=== PATIENT | male | born 1940 | race Caucasian/White ===

== ENCOUNTER → 2018-10-23 08:10 | Outpatient (CLI) | payer OTHER, SELFPAY ==
[2018-10-23 09:09] LABS: Add Manual Diff / Slide Review NO; Basophils Absolute Auto 100 /uL (0-100); Basophils Percent Auto 0.9 % (0-2); Eosinophils Absolute Auto 200 /uL (0-450); Hematocrit 43.7 % (41-53); Lymphocytes Absolute Auto 1700 /uL (1100-4500); Lymphocytes Percent Auto 22.8 % (25-40); Mean Corpuscular HGB Conc 34.3 % (30-36); Mean Corpuscular Hemoglobin 29.3 PG (26-34); Mean Corpuscular Volume 85.3 fL (80-100); Monocytes Absolute Auto 700 /uL (0-900); Monocytes Percent Auto 8.8 % (3-14); Neutrophils Absolute Auto 4900 /uL (1500-7000); Neutrophils Percent Auto 64.5 % (50-75); Platelet Count 262 X10^3/uL (150-400); Red Blood Cell Count 5.12 X10^6/uL (4.5-5.9); Red Cell Distribution Width 13.8 % (11.6-14.8); White Blood Cell Count 7.6 X10^3/uL (4.5-11.0)
[2018-10-23 10:13] LABS: Alanine Aminotransferase 26 IU/L (21-72); Albumin 4.4 g/dL (3.5-5.0); Albumin Globulin Ratio 1.7 (1.0-2.8); Alkaline Phosphatase 57 U/L (38-126); Aspartate Aminotransferase 22 IU/L (17-59); BUN Creatinine Ratio 21.3 (6-22); Bilirubin Total 0.5 mg/dL (0.2-1.3); Blood Urea Nitrogen 17 mg/dL (9-20); Calcium 9.9 mg/dL (8.4-10.2); Carbon Dioxide 29 mmol/L (22-32); Chloride 101 mmol/L (98-107); Cholesterol 183 mg/dL (140-199); Estimated Glomerular Filt Rate > 60.0 mL/min (>60); Globulin 2.6 g/dL (1.7-4.1); Glucose 99 mg/dL (80-110); HDL Cholesterol 77 mg/dL (40-60); HEMOLYSIS < 15 (0-50); LDL Cholesterol Calculated 88 mg/dL (<100); Potassium 5.3 mmol/L (3.4-5.1); Sodium 138 mmol/L (137-145); Triglycerides 89 mg/dL (35-150)
[2018-10-23 10:43] LABS: Thyroid Stimulating Hormone 1.81 uIU/mL (0.47-4.68)
== END ==
PROVIDERS: PCP Family Medicine; Visit Provider Family Medicine
DX: E78.2 Mixed hyperlipidemia (principal); I10 Essential (primary) hypertension
CPT/HCPCS: 36415; 80053; 80061; 84443; 85025

== ENCOUNTER → 2018-11-06 13:39 | Outpatient (CLI) | payer OTHER, SELFPAY ==
[2018-11-06 16:09] LABS: Prostate Specific Antigen Scrn < 0.064 ng/mL (0.1-4.0)
== END ==
PROVIDERS: PCP Family Medicine; Visit Provider Family Medicine
DX: E78.2 Mixed hyperlipidemia (principal); Z12.5 Encounter for screening for malignant neoplasm of prostate
CPT/HCPCS: 36415; G0103

== ENCOUNTER → 2020-04-04 16:32 | Outpatient (CLI) | payer OTHER, SELFPAY ==
--- NOTE | 2020-04-04 16:35 | DI.RAD.S_ITS ---
PROCEDURE: XR SHOULDER RT MIN 2V INDICATIONS: right shoulder injury/pain TECHNIQUE: Three views of the shoulder were acquired. COMPARISON: None. FINDINGS: Bones: No fractures or dislocations. Mild degenerative changes. No suspicious bony lesions. Visualized ribs appear intact. Soft tissues: No suspicious soft tissue calcifications. Small non ossified density just caudal to the inferior glenoid. IMPRESSION: 1. Small non ossified density caudal to the glenohumeral joint may be dystrophic calcification or loose intra-articular body. 2. No significant humeral head fractures. Dictated by: Mariella Galan M.D. on 04/04/2020 at 16:04 Approved by: Mariella Galan M.D. on 04/04/2020 at 16:06
== END ==
PROVIDERS: PCP Family Medicine; Referring Provider Registered Nurse; Visit Provider Registered Nurse
DX: S49.91XA Unspecified injury of right shoulder and upper arm, initial encounter (principal); X58.XXXA Exposure to other specified factors, initial encounter
CPT/HCPCS: 73030

== ENCOUNTER → 2020-08-09 07:46 | Outpatient (CLI) | payer OTHER, SELFPAY ==
[2020-08-09 08:37] LABS: Alanine Aminotransferase 16 IU/L (<50); Albumin 4.2 g/dL (3.5-5.0); Albumin Globulin Ratio 1.6 (1.0-2.8); Alkaline Phosphatase 59 U/L (38-126); Aspartate Aminotransferase 24 IU/L (17-59); BUN Creatinine Ratio 23.9 (6-22); Bilirubin Total 0.4 mg/dL (0.2-1.3); Blood Urea Nitrogen 21 mg/dL (9-20); Calcium 9.2 mg/dL (8.4-10.2); Carbon Dioxide 32 mmol/L (22-32); Chloride 103 mmol/L (98-107); Cholesterol 213 mg/dL (140-199); Estimated Glomerular Filt Rate > 60.0 mL/min (>60); Globulin 2.7 g/dL (1.7-4.1); Glucose 110 mg/dL (80-110); HDL Cholesterol 72 mg/dL (40-60); HEMOLYSIS < 15 (0-50); LDL Cholesterol Calculated 126 mg/dL (<100); Potassium 4.6 mmol/L (3.4-5.1); Sodium 137 mmol/L (137-145); Total Protein 6.9 g/dL (6.3-8.2); Triglycerides 77 mg/dL (35-150)
== END ==
PROVIDERS: PCP Family Medicine; Referring Provider Family Medicine; Visit Provider Family Medicine
DX: E78.2 Mixed hyperlipidemia (principal); E87.5 Hyperkalemia
CPT/HCPCS: 36415; 80053; 80061

== ENCOUNTER → 2021-04-13 07:52 | Outpatient (CLI) | payer OTHER, SELFPAY ==
[2021-04-13 08:25] LABS: Add Manual Diff / Slide Review NO; Basophils Absolute Auto 100 /uL (0-100); Basophils Percent Auto 0.9 % (0-2); Eosinophils Absolute Auto 200 /uL (0-450); Eosinophils Percent Auto 2.5 % (2-4); Hematocrit 42.9 % (41-53); Hemoglobin 14.5 g/dL (13.5-17.5); Lymphocytes Absolute Auto 1700 /uL (1100-4500); Lymphocytes Percent Auto 26.1 % (25-40); Mean Corpuscular HGB Conc 33.8 % (30-36); Mean Corpuscular Hemoglobin 29.6 PG (26-34); Mean Corpuscular Volume 87.4 fL (80-100); Monocytes Absolute Auto 600 /uL (0-900); Monocytes Percent Auto 8.2 % (3-14); Neutrophils Absolute Auto 4200 /uL (1500-7000); Neutrophils Percent Auto 62.3 % (50-75); Platelet Count 244 X10^3/uL (150-400); Red Blood Cell Count 4.91 X10^6/uL (4.5-5.9); Red Cell Distribution Width 13.9 % (11.6-14.8); White Blood Cell Count 6.7 X10^3/uL (4.5-11.0)
[2021-04-13 08:31] LABS: Alanine Aminotransferase 18 IU/L (<50); Albumin 4.6 g/dL (3.5-5.0); Albumin Globulin Ratio 1.9 (1.0-2.8); Alkaline Phosphatase 58 U/L (38-126); Aspartate Aminotransferase 24 IU/L (17-59); BUN Creatinine Ratio 19.6 (6-22); Bilirubin Total 0.6 mg/dL (0.2-1.3); Blood Urea Nitrogen 18 mg/dL (9-20); Calcium 9.7 mg/dL (8.4-10.2); Carbon Dioxide 29 mmol/L (22-32); Chloride 102 mmol/L (98-107); Cholesterol 186 mg/dL (140-199); Estimated Glomerular Filt Rate > 60.0 mL/min (>60); Globulin 2.4 g/dL (1.7-4.1); Glucose 90 mg/dL (80-110); HDL Cholesterol 92 mg/dL (40-60); HEMOLYSIS < 15 (0-50); LDL Cholesterol Calculated 75 mg/dL (<100); Potassium 4.2 mmol/L (3.4-5.1); Sodium 138 mmol/L (137-145); Triglycerides 97 mg/dL (35-150)
[2021-04-13 09:03] LABS: Prostate Specific Antigen Scrn < 0.064 ng/mL (0.1-4.0)
[2021-04-13 10:03] LABS: Microalbumin Urine Random < 0.6 mg/dL (0-1.6)
== END ==
PROVIDERS: PCP Family Medicine; Referring Provider Family Medicine; Visit Provider Family Medicine
DX: E78.2 Mixed hyperlipidemia (principal); Z12.5 Encounter for screening for malignant neoplasm of prostate; I10 Essential (primary) hypertension; R97.20 Elevated prostate specific antigen [PSA]
CPT/HCPCS: 36415; 80053; 80061; 82043; 82570; 85025; G0103

== ENCOUNTER → 2021-05-14 10:44 | Outpatient (CLI) | payer OTHER, SELFPAY ==
[2021-05-14 14:33] LABS: COVID19 -Nasal RAPID Negative (Negative)
== END ==
PROVIDERS: PCP Family Medicine; Visit Provider Nurse Practitioner Family
DX: Z20.822 Contact with and (suspected) exposure to COVID-19 (principal)
CPT/HCPCS: 87635; C9803

== ENCOUNTER 2021-05-15 11:18 | Day surgery (SDC) | payer OTHER, SELFPAY ==
[2021-05-15 11:48] VITALS: BP 181/83; PULSE 77; RESP 16; TEMP 36.6; O2SAT 97; BMI 25.8
[2021-05-15] MEDS: CATARACT EYE COMPOUND (10 DROPS/SYRINGE) 3 DROPS EYE-OP (11:56)
[2021-05-15] MEDS: PROPARACAINE 0.5% OPHTH SOL 2 DROPS EYE-OP (11:57)
--- NOTE | 2021-05-15 12:36 | PM.PREOP ---
Pre-operative Note Interval Note History & Physical reviewed/Exam performed by Physician: Yes Changes to H&P: No
--- NOTE | 2021-05-15 12:36 | PM.OP.1 ---
Operative Date/Time/Diagnoses Pre-op diagnosis: Nuclear cataract right eye Procedure & Clinicians Procedure: Cataract Surgery Same procedure as scheduled: Yes Surgeon: Feng Chin Anesthesia Type: MAC +/- and Sedation Operative Notes Procedure in detail: Patient brought to the operating suite. Tetracaine drops placed in the right eye. Patient was prepped and draped in sterile manner. Wire lid speculum was placed in the eye. Betadine drops were placed on the eye. This was irrigated. Lidocaine jelly was placed on the eye. A paracentesis port was created with a side-port blade. 0.1 mL 1% preservative free lidocaine was injected into the anterior chamber. There was no view of the capsule because of white cataract and asteroid hylosis. 0.2 mL vision blue was injected under air to stain the capsule. The anterior chamber was deepened with viscoelastic. 2.6 mm keratome was used to create a temporal clear corneal incision. Cystotome and Utrata forceps were used to create continuous tear capsulorrhexis. Balanced salt solution was used to hydro dissect the nucleus. The phacoemulsification handpiece was inserted and the nucleus was removed using the stop and chop technique. The irrigation aspiration handpiece was inserted and the remaining cortex was removed. Anterior chamber was deepened with viscoelastic. An Daniel DIB00 intraocular lens with a power of 24.5 was injected into the capsular bag. Irrigation aspiration handpiece was inserted and the remaining viscoelastic was removed. Incision was hydrated with balanced salt solution and found to be leak free with pressure with Weck-Nini sponges. 0.1 mL Vigamox injected anterior chamber. 0.3 mL Kenalog 10 mg was injected subconjunctivally. Lid speculum was removed. The patient left the operating room in excellent condition. Complications: none Post-operative Condition: stable Disposition: same day surgery
[2021-05-15] MEDS: HYALURONATE SODIUM 30 MG-10 MG/ML SYRINGES 1 BOX INTRAOCULA (12:48)
[2021-05-15] MEDS: TRYPAN BLUE 0.5 ML SYRINGE INJ (12:53)
[2021-05-15] MEDS: MOXIFLOXACIN INJ 4 MG/0.8 ML VIAL 0.5 MG EYE-OP (12:53)
[2021-05-15] MEDS: PHENYLEPHRINE/LIDOCAINE VIAL (OR) 0.2 ML EYE-OP (12:54)
[2021-05-15] MEDS: TRIAMCINOLONE 50 MG/5 ML VIAL INJ (12:54)
[2021-05-15] MEDS: BALANCED SALT IRRIG SOLN NO.2 500 ML, EPINEPHrine 1 MG IRR (12:54)
[2021-05-15] MEDS: TETRACAINE 0.5% OPHTH DROPS 4 ML 2 DROPS EYE-OP (12:55)
[2021-05-15] MEDS: LIDOCAINE 2% (GLYDO) 6 ML GEL TOP (12:55)
[2021-05-15 13:15] VITALS: BP 163/76; PULSE 68; RESP 16; TEMP 37.2; O2SAT 100
[2021-05-15 13:42] VITALS: BP 162/79; PULSE 68; RESP 16; TEMP 36.8; O2SAT 100
--- NOTE | 2021-05-15 14:32 | SUR.PHASEII ---
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
== END 2021-05-15 13:50 | disposition home or self-care (01) ==
PROVIDERS: PCP Family Medicine; Referring Provider Ophthalmology; Visit Provider Ophthalmology
PROC: (CPT 66984; principal; 2021-05-15 13:15)
DX: H25.11 Age-related nuclear cataract, right eye (principal); I10 Essential (primary) hypertension; E78.5 Hyperlipidemia, unspecified; M06.9 Rheumatoid arthritis, unspecified
CPT/HCPCS: 66984; J0171; J2250; J3301

== ENCOUNTER → 2021-05-28 10:20 | Outpatient (CLI) | payer OTHER, SELFPAY ==
[2021-05-28 11:24] LABS: COVID19 -Nasal RAPID Negative (Negative)
== END ==
PROVIDERS: PCP Family Medicine; Visit Provider Physician Assistant
DX: Z01.812 Encounter for preprocedural laboratory examination (principal); Z20.822 Contact with and (suspected) exposure to COVID-19
CPT/HCPCS: 87635; C9803

== ENCOUNTER 2021-05-29 08:20 | Day surgery (SDC) | payer OTHER, SELFPAY ==
[2021-05-29] MEDS: PROPARACAINE 0.5% OPHTH SOL 2 DROPS EYE-OP (09:24)
[2021-05-29] MEDS: CATARACT EYE COMPOUND (10 DROPS/SYRINGE) 3 DROPS EYE-OP (09:30)
[2021-05-29 09:31] VITALS: BP 183/83; PULSE 67; RESP 16; TEMP 36.9; O2SAT 98; BMI 25.0
--- NOTE | 2021-05-29 10:12 | PM.PREOP ---
Pre-operative Note Interval Note History & Physical reviewed/Exam performed by Physician: Yes Changes to H&P: No
--- NOTE | 2021-05-29 10:12 | PM.OP.1 ---
Operative Date/Time/Diagnoses Pre-op diagnosis: Nuclear Cataract Left eye Post-op diagnosis: same Procedure & Clinicians Same procedure as scheduled: Yes Surgeon: Feng Chin Anesthesia Type: MAC +/- and Sedation Operative Notes Procedure in detail: Patient brought to the operating suite. Tetracaine drops placed in the left eye. Patient was prepped and draped in sterile manner. Wire lid speculum was placed in the eye. Betadine drops were placed on the eye. This was irrigated. Lidocaine jelly was placed on the eye. A paracentesis port was created with a side-port blade. 0.1 mL 1% preservative free lidocaine was injected into the anterior chamber. There was no red reflex. The anterior chamber was filled with air. 0.1 ML of vision blue was injected to stain the capsule. The anterior chamber was deepened with viscoelastic. 2.6 mm keratome was used to create a temporal clear corneal incision. Cystotome and Utrata forceps were used to create continuous tear capsulorrhexis. Balanced salt solution was used to hydro dissect the nucleus. The phacoemulsification handpiece was inserted and the nucleus was removed using the stop and chop technique. The irrigation aspiration handpiece was inserted and the remaining cortex was removed. Anterior chamber was deepened with viscoelastic. An Daniel DIB00 intraocular lens with a power of 25.5 was injected into the capsular bag. Irrigation aspiration handpiece was inserted and the remaining viscoelastic was removed. Incision was hydrated with balanced salt solution and found to be leak free with pressure with Weck-Nini sponges. 0.1 mL Vigamox injected anterior chamber. 0.3 mL Kenalog 10 mg was injected subconjunctivally. Lid speculum was removed. The patient left the operating room in excellent condition. Complications: none Post-operative Condition: stable Disposition: same day surgery
[2021-05-29] MEDS: HYALURONATE SODIUM 30 MG-10 MG/ML SYRINGES 1 BOX INTRAOCULA (10:28)
[2021-05-29] MEDS: MOXIFLOXACIN INJ 4 MG/0.8 ML VIAL 0.5 MG EYE-OP (10:28)
[2021-05-29] MEDS: PHENYLEPHRINE/LIDOCAINE VIAL (OR) 0.2 ML EYE-OP (10:28)
[2021-05-29] MEDS: TRIAMCINOLONE 50 MG/5 ML VIAL INJ (10:28)
[2021-05-29] MEDS: BALANCED SALT IRRIG SOLN NO.2 500 ML, EPINEPHrine 1 MG IRR (10:29)
[2021-05-29] MEDS: TETRACAINE 0.5% OPHTH DROPS 4 ML 2 DROPS EYE-OP (10:29)
[2021-05-29] MEDS: LIDOCAINE 2% (GLYDO) 6 ML GEL TOP (10:29)
[2021-05-29 10:45] VITALS: BP 168/72; PULSE 68; RESP 18; TEMP 36.6; O2SAT 95
[2021-05-29 11:15] VITALS: BP 158/78; PULSE 67; RESP 18
== END 2021-05-29 11:17 | disposition home or self-care (01) ==
PROVIDERS: PCP Family Medicine; Referring Provider Ophthalmology; Visit Provider Ophthalmology
PROC: (CPT 66984; principal; 2021-05-29 10:15)
DX: H25.12 Age-related nuclear cataract, left eye (principal); I10 Essential (primary) hypertension; E78.5 Hyperlipidemia, unspecified
CPT/HCPCS: 66984; J0171; J2250; J3301

== ENCOUNTER → 2022-10-04 07:44 | Outpatient (CLI) | payer OTHER, SELFPAY ==
[2022-10-04 09:00] LABS: Add Manual Diff / Slide Review NO; Basophils Absolute Auto 0 /uL (0-100); Basophils Percent Auto 0.5 % (0-2); Eosinophils Absolute Auto 100 /uL (0-450); Eosinophils Percent Auto 0.6 % (2-4); Hematocrit 41.1 % (41-53); Hemoglobin 13.9 g/dL (13.5-17.5); Lymphocytes Absolute Auto 1700 /uL (1100-4500); Lymphocytes Percent Auto 17.6 % (25-40); Mean Corpuscular HGB Conc 33.8 % (30-36); Mean Corpuscular Hemoglobin 29.5 PG (26-34); Mean Corpuscular Volume 87.2 fL (80-100); Monocytes Absolute Auto 900 /uL (0-900); Neutrophils Absolute Auto 6900 /uL (1500-7000); Neutrophils Percent Auto 72.3 % (50-75); Platelet Count 281 X10^3/uL (150-400); Red Blood Cell Count 4.72 X10^6/uL (4.5-5.9); Red Cell Distribution Width 14.1 % (11.6-14.8); White Blood Cell Count 9.6 X10^3/uL (4.5-11.0)
[2022-10-04 09:57] LABS: Alanine Aminotransferase 26 IU/L (<50); Albumin Globulin Ratio 1.3 (1.0-2.8); Alkaline Phosphatase 71 U/L (38-126); Aspartate Aminotransferase 27 IU/L (17-59); BUN Creatinine Ratio 17.4 (6-22); Bilirubin Total 0.5 mg/dL (0.2-1.3); Blood Urea Nitrogen 15 mg/dL (9-20); Calcium 9.3 mg/dL (8.4-10.2); Carbon Dioxide 31 mmol/L (22-32); Chloride 103 mmol/L (98-107); Cholesterol 184 mg/dL (140-199); Estimated Glomerular Filt Rate > 60 mL/min (>60); Glucose 111 mg/dL (80-110); HDL Cholesterol 67 mg/dL (40-60); HEMOLYSIS < 15 (0-50); LDL Cholesterol Calculated 99 mg/dL (<100); Potassium 5.3 mmol/L (3.4-5.1); Sodium 138 mmol/L (137-145); Triglycerides 88 mg/dL (35-150)
[2022-10-04 09:59] LABS: Creatinine Urine Random 106.8 mg/dL
[2022-10-04 10:26] LABS: Microalbumin Urine Random < 0.6 mg/dL (0-1.6)
[2022-10-04 10:27] LABS: Prostate Specific Antigen Scrn < 0.064 ng/mL (0.1-4.0)
[2022-10-04 10:32] LABS: TSH w/ Reflex to FT4 1.79 uIU/mL (0.47-4.68)
== END ==
PROVIDERS: PCP Family Medicine; Referring Provider Family Medicine; Visit Provider Family Medicine
DX: E78.2 Mixed hyperlipidemia (principal); Z12.5 Encounter for screening for malignant neoplasm of prostate; I10 Essential (primary) hypertension; R97.20 Elevated prostate specific antigen [PSA]
CPT/HCPCS: 36415; 80053; 80061; 82043; 82570; 84443; 85025; G0103

== ENCOUNTER → 2023-06-28 10:03 | Outpatient (CLI) | payer OTHER, SELFPAY ==
[2023-07-01 18:08] LABS: Fecal Immunochemical Test Negative (Negative)
== END ==
PROVIDERS: PCP Family Medicine; Referring Provider Physician Assistant; Visit Provider Physician Assistant
DX: R19.5 Other fecal abnormalities (principal); Z12.11 Encounter for screening for malignant neoplasm of colon
CPT/HCPCS: 82274

== ENCOUNTER → 2024-01-01 10:04 | Outpatient (CLI) | payer OTHER, SELFPAY ==
--- NOTE | 2024-01-01 10:06 | DI.RAD.S_ITS ---
PROCEDURE: XR THORACIC SPINE 3V INDICATIONS: bilateral shoulder pain and mid back pain TECHNIQUE: 3 views of the thoracic spine were acquired. COMPARISON: None. FINDINGS: Bones: No fractures or dislocations. No suspicious bony lesions. 12 pairs of ribs are noted, and appear intact where visualized. Soft tissues: No paravertebral stripe thickening. IMPRESSION: No acute bony abnormality. Approved by: Francis Castellanos M.D. on 01/01/2024 at 13:04
--- NOTE | 2024-01-01 10:06 | DI.RAD.S_ITS ---
PROCEDURE: XR CERVICAL SPINE 2V OR 3V INDICATIONS: bilateral shoulder pain and mid back pain TECHNIQUE: 3 view(s) of the cervical spine were acquired. COMPARISON: None. FINDINGS: Bones: No fractures or dislocations to the T1 level. The lateral masses of C1 appear intact on the odontoid view. No suspicious bony lesions. Disc space narrowing hypertrophic facet joints noted in the mid cervical spine. Craniovertebral relationships normal. Normal bone mineralization Soft tissues: No prevertebral soft tissue swelling. IMPRESSION: No displaced fracture or traumatic subluxation.. 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 Approved by: Francis Castellanos M.D. on 01/01/2024 at 12:57
== END ==
PROVIDERS: PCP Family Medicine; Referring Provider Family Medicine; Visit Provider Family Medicine
DX: M47.812 Spondylosis without myelopathy or radiculopathy, cervical region (principal); M50.320 Other cervical disc degeneration, mid-cervical region, unspecified level; M25.511 Pain in right shoulder; M25.512 Pain in left shoulder; M54.9 Dorsalgia, unspecified
CPT/HCPCS: 72040; 72072

== ENCOUNTER → 2024-01-03 07:50 | Outpatient (CLI) | payer OTHER, SELFPAY ==
[2024-01-03 08:34] LABS: Add Manual Diff / Slide Review NO; Basophils Absolute Auto 0 /uL (0-100); Basophils Percent Auto 0.4 % (0-2); Eosinophils Absolute Auto 300 /uL (0-450); Hematocrit 43.4 % (41-53); Hemoglobin 14.5 g/dL (13.5-17.5); Lymphocytes Absolute Auto 1900 /uL (1100-4500); Lymphocytes Percent Auto 22.2 % (25-40); Mean Corpuscular HGB Conc 33.5 % (30-36); Mean Corpuscular Hemoglobin 28.7 PG (26-34); Mean Corpuscular Volume 85.9 fL (80-100); Monocytes Absolute Auto 800 /uL (0-900); Monocytes Percent Auto 9.5 % (3-14); Neutrophils Absolute Auto 5400 /uL (1500-7000); Neutrophils Percent Auto 63.9 % (50-75); Platelet Count 317 X10^3/uL (150-400); Red Blood Cell Count 5.05 X10^6/uL (4.5-5.9); Red Cell Distribution Width 14.7 % (11.6-14.8); White Blood Cell Count 8.5 X10^3/uL (4.5-11.0)
[2024-01-03 09:01] LABS: Alanine Aminotransferase 21 IU/L (<50); Albumin 4.3 g/dL (3.5-5.0); Albumin Globulin Ratio 1.5 (1.0-2.8); Alkaline Phosphatase 65 U/L (38-126); Aspartate Aminotransferase 26 IU/L (17-59); Bilirubin Total 0.7 mg/dL (0.2-1.3); Blood Urea Nitrogen 19 mg/dL (9-20); Calcium 9.6 mg/dL (8.4-10.2); Carbon Dioxide 29 mmol/L (22-32); Chloride 103 mmol/L (98-107); Cholesterol 178 mg/dL (140-199); Creatinine Urine Random 129.23 mg/dL; Estimated Glomerular Filt Rate > 60 mL/min (>60); Globulin 2.9 g/dL (1.7-4.1); Glucose 117 mg/dL (80-110); HDL Cholesterol 79 mg/dL (40-60); HEMOLYSIS < 15 (0-50); LDL Cholesterol Calculated 83 mg/dL (<100); Potassium 4.9 mmol/L (3.4-5.1); Sodium 138 mmol/L (137-145); Total Protein 7.2 g/dL (6.3-8.2); Triglycerides 82 mg/dL (35-150)
[2024-01-03 09:11] LABS: Microalbumin Urine Random < 0.6 mg/dL (0-1.6)
[2024-01-03 09:30] LABS: TSH w/ Reflex to FT4 2.16 uIU/mL (0.47-4.68)
[2024-01-03 09:40] LABS: Prostate Specific Antigen Scrn < 0.064 ng/mL (0.1-4.0)
[2024-01-05 07:11] LABS: Apolipoprotein B 75 mg/dL (<90)
== END ==
PROVIDERS: PCP Family Medicine; Referring Provider Family Medicine; Visit Provider Family Medicine
DX: Z12.5 Encounter for screening for malignant neoplasm of prostate (principal); M54.50 Low back pain, unspecified; I10 Essential (primary) hypertension; Z00.00 Encounter for general adult medical examination without abnormal findings; M17.11 Unilateral primary osteoarthritis, right knee; G89.29 Other chronic pain; R97.20 Elevated prostate specific antigen [PSA]; E78.2 Mixed hyperlipidemia
CPT/HCPCS: 36415; 80053; 80061; 82043; 82172; 82570; 84443; 85025; G0103

== ENCOUNTER 2024-08-01 17:44 | Emergency (ER) | payer OTHER, SELFPAY ==
[2024-08-01] VITALS (11 sets, daily range): BP systolic 138–179; BP diastolic 70–88; PULSE 72–78; RESP 16–18; TEMP 36.5–37.3; O2SAT 93–97; BMI 26.6
--- NOTE | 2024-08-01 18:05 | DI.RAD.S_ITS ---
PROCEDURE: XR CHEST 1V INDICATIONS: chest pain TECHNIQUE: One view of the chest was acquired. COMPARISON: None. FINDINGS: Surgical changes and devices: None. Lungs and pleura: Lungs are clear. No pleural effusions or pneumothorax. Pleural calcifications on the left. Mediastinum: Mediastinal contours appear normal. Heart size is normal. Bones and chest wall: No suspicious bony lesions. Overlying soft tissues appear unremarkable. IMPRESSION: No acute cardiopulmonary abnormality is seen. Dictated by: rBett Nixon M.D. on 08/01/2024 at 18:56 Approved by: Brett Nixon M.D. on 08/01/2024 at 18:57
--- NOTE | 2024-08-01 18:16 | EKG_ITS ---
[place] [id number] [place] [id number] Test Date: 2024-08-01 Pat Name: León Andino Department: Room: Gender: Male Urology Surgeon: SURYA : 1940 Requested By: Order Number: [id number] Reading MD: Dilip Bell MD Measurements Intervals [place] Rate: 70 P: 37 [place]: 146 QRS: -45 QRSD: 100 T: 43 QT: 388 QTc: 419 Interpretive Statements Normal sinus rhythm Left anterior fascicular block Moderate voltage criteria for LVH, may be normal variant ( R in aVL , Converse product ) Electronically Signed On 08-02-2024 13:39:00 PST by Dilip Bell MD
[2024-08-01 18:32] LABS: Hematocrit 42.7 % (41-53); Hemoglobin 14.4 g/dL (13.5-17.5); Mean Corpuscular HGB Conc 33.8 % (30-36); Mean Corpuscular Hemoglobin 28.9 PG (26-34); Mean Corpuscular Volume 85.4 fL (80-100); Platelet Count 254 X10^3/uL (150-400); Red Cell Distribution Width 13.7 % (11.6-14.8); White Blood Cell Count 7.1 X10^3/uL (4.5-11.0)
[2024-08-01 18:33] LABS: Add Manual Diff / Slide Review NO; Basophils Absolute Auto 0 /uL (0-100); Basophils Percent Auto 0.6 % (0-2); Eosinophils Absolute Auto 200 /uL (0-450); Eosinophils Percent Auto 3.2 % (2-4); Lymphocytes Absolute Auto 1200 /uL (1100-4500); Lymphocytes Percent Auto 16.9 % (25-40); Monocytes Absolute Auto 1200 /uL (0-900); Monocytes Percent Auto 17.4 % (3-14); Neutrophils Absolute Auto 4400 /uL (1500-7000); Neutrophils Percent Auto 61.9 % (50-75)
[2024-08-01 18:38] LABS: Prothrombin Time 11.7 SECONDS (9.4-12.5)
[2024-08-01 18:41] LABS: PTT Partial Thromboplastin Tim 33 SECONDS (25.1-36.5)
[2024-08-01 18:44] LABS: Alanine Aminotransferase 31 IU/L (<50); Albumin 4.4 g/dL (3.5-5.0); Albumin Globulin Ratio 1.5 (1.0-2.8); Alkaline Phosphatase 60 U/L (38-126); Aspartate Aminotransferase 54 IU/L (17-59); BUN Creatinine Ratio 16.8 (6-22); Bilirubin Total 0.6 mg/dL (0.2-1.3); Blood Urea Nitrogen 18 mg/dL (9-20); Calcium 9.2 mg/dL (8.4-10.2); Carbon Dioxide 27 mmol/L (22-32); Chloride 97 mmol/L (98-107); Creatine Kinase 486 U/L (55-170); Estimated Glomerular Filt Rate > 60 mL/min (>60); Globulin 2.9 g/dL (1.7-4.1); Glucose 106 mg/dL (80-110); HEMOLYSIS < 15 (0-50); Lipase 215 U/L (23-300); Magnesium 2.3 mg/dL (1.6-2.3); Potassium 4.2 mmol/L (3.4-5.1); Sodium 129 mmol/L (137-145); Total Protein 7.3 g/dL (6.3-8.2)
[2024-08-01 18:55] LABS: NT-proBNP (BNP-Adult 18+) 150 pg/mL (<450); Troponin I < 0.012 ng/mL (0.01-0.034)
--- NOTE | 2024-08-01 19:17 | ED_ITS ---
HPI - Weakness General Chief complaint: Weakness Stated complaint: Dizzy and fell at home. Flu symptoms; feeling off Time Seen by Provider: 08/01/24 19:16 Source: patient and family Mode of arrival: Wheelchair History of Present Illness HPI Narrative: 83-year-old male with history of hypertension, hyperlipidemia, chronic low back pain, comes into the ED from home with family for evaluation of multiple complaints. According to patient's granddaughter as well as patient has been complaining of weakness cough ongoing persistent for the past few days, states that patient also had a mechanical trip and fall when they were outside earlier today, states that he was on a slope normally shuffles his feet and fell backwards. No LOC not on any blood thinners, patient was able to stand bear weight ambulate immediately after, they state that after that they gave him some Valium and then approximately 30 minutes to an hour later he seemed a little bit more confused therefore decided come into the ED for further evaluation. at bedside also states that patient has been having a gradual decline in regards to his cognition over the past several months, states that he has not ?sharp as he used to be. At time of evaluation patient is alert to self and place intermittently to time otherwise moving all 4 extremities answering all questions appropriately following commands NIH of 0 Related Data Home Medications Medication Instructions Recorded Confirmed ASPIRIN (Aspirin) 81 mg PO 3XW ##0 08/27/21 01/01/24 Previous Rx's Medication Instructions Recorded sildenafil (pulm.hypertension) 20 40 mg (2 x 20 mg) PO ONCE PRN 05/03/ mg tablet sexual activity #30 tabs baclofen 5 mg tablet 5 mg PO BID PRN muscle spasm #30 01/09/24 tabs etodolac 200 mg capsule 200 mg PO Q8H PRN pain #90 caps 01/09/24 lisinopril 20 mg tablet 20 mg PO DAILY #90 tabs 06/29/24 simvastatin 20 mg tablet 20 mg PO HS #90 tabs 06/29/24 Allergies Allergy/AdvReac Type Severity Reaction Status Date / Time No Known Drug Allergies Allergy Verified 01/01/24 09:17 Review of Systems Review of Systems Narrative: General: Ground level fall, positive weakness generalized, Denies fever, chills, weight loss HEENT: Denies headache, eye drainage, eye irritation, head trauma, sore throat, voice change Cardiovascular: Denies any chest pain, palpitations, shortness of breath, tachycardia Respiratory: Positive cough, denies shortness of breath wheeze stridor GI/: Denies any abdominal pain, nausea, vomiting, diarrhea, bright red blood per rectum, melanotic stools, urinary frequency, urinary retention, dysuria, hematuria MSK: Denies any joint pain, muscle pains, swelling Skin: Denies any rashes, lesions, discoloration Neuro: Increased confusion, Denies any headache, lightheadedness, dizziness, fainting, weakness Psych: Denies SI/HI Patient History Medical History (Updated 08/01/24 @ 21:[address] DO) Osteoarthritis of right knee Chronic low back pain Abnormal PSA Medicare annual wellness visit, subsequent Social History household members: spouse Smoking Status: Former smoker alcohol intake: current Smoking Status: Former smoker alcohol intake frequency: 0-2 drinks per day Alcohol type: wine Exam Initial Vital Signs Initial Vital Signs: Vital Signs Temperature 99.1 F 08/01/24 17:50 Pulse Rate 77 08/01/24 17:50 Respiratory Rate 18 08/01/24 17:50 Blood Pressure 141/72 H 08/01/24 17:50 Pulse Oximetry 96 08/01/24 17:50 Oxygen Delivery Method Room Air 08/01/24 17:50 Course Orders Ordered: ED Orders 08/01/24 18:05 XR chest 1V Stat Covid-19 + FLU A/B + RSV - PCR Stat EKG-12 Lead Stat 08/01/24 18:22 Complete Blood Count AUTO DIFF Stat Comprehensive Metabolic Panel Stat Lipase Stat Magnesium Stat NT-proBNP (BNP-Adult 18+) Stat PTT Partial Thromboplastin Mor Stat Prothrombin Time INR Stat Troponin & CK Cardiac Panel Stat 08/01/24 19:35 CT cervical spine wo con Stat CT head/brain wo con Stat Vital Signs Vital signs: Vital Signs - 8 hr 08/01/24 17:50 08/01/24 19:25 08/01/24 19:26 Temperature 99.1 F Pulse Rate 77 76 78 Respiratory Rate 18 Blood Pressure 141/72 H Pulse Oximetry 96 93 96 Oxygen Delivery Method Room Air 08/01/24 19:26 08/01/24 19:30 Temperature Pulse Rate 72 Respiratory Rate Blood Pressure 138/76 Pulse Oximetry 93 Oxygen Delivery Method MDM - Weakness Differential Diagnosis Differential diagnosis: Likely other (ACS, pneumonia, electrolyte abnormality, COVID, flu, intracranial hemorrhage) Lab Data 08/01/24 18:22 08/01/24 18:22 Labs: Lab Results 08/01/24 08/01/24 Range/Units 18:05 18:22 WBC 7.1 (4.5-11.0) X10^3/uL RBC 5.00 (4.5-5.9) X10^6/uL Hgb 14.4 (13.5-17.5) g/dL Hct 42.7 (41-53) % MCV 85.4 (80-100) fL MCH 28.9 (26-34) PG MCHC 33.8 (30-36) % RDW 13.7 (11.6-14.8) % Plt Count 254 (150-400) X10^3/uL Neut % (Auto) 61.9 (50-75) % Lymph % (Auto) 16.9 L (25-40) % [place] % (Auto) 17.4 H (3-14) % Eos % (Auto) 3.2 (2-4) % Baso % (Auto) 0.6 (0-2) % Neut # (Auto) 4400 (7260-9434) /uL Lymph # (Auto) 1200 (4434-1971) /uL [place] # (Auto) 1200 H (0-900) /uL Eos # (Auto) 200 (0-450) /uL Baso # (Auto) 0 (0-100) /uL PT 11.7 (9.4-12.5) SECONDS INR 1.0 (0.9-1.3) APTT 33 (25.1-36.5) SECONDS Sodium 129 L (137-145) mmol/L Potassium 4.2 (3.4-5.1) mmol/L Chloride 97 L (98-107) mmol/L Carbon Dioxide 27 (22-32) mmol/L BUN 18 (9-20) mg/dL Creatinine 1.07 (0.66-1.25) mg/dL Estimated GFR > 60 (>60) mL/min BUN/Creatinine Ratio 16.8 (6-22) Glucose 106 (80-110) mg/dL Calcium 9.2 (8.4-10.2) mg/dL Magnesium 2.3 (1.6-2.3) mg/dL Total Bilirubin 0.6 (0.2-1.3) mg/dL AST 54 (17-59) IU/L ALT 31 (<50) IU/L Alkaline Phosphatase 60 (38-126) U/L Total Creatine Kinase 486 H (55-170) U/L Troponin I < 0.012 (0.01-0.034) ng/mL NT-Pro-B Natriuret Pep 150 (<450) pg/mL Total Protein 7.3 (6.3-8.2) g/dL Albumin 4.4 (3.5-5.0) g/dL Globulin 2.9 (1.7-4.1) g/dL Albumin/Globulin Ratio 1.5 (1.0-2.8) Lipase 215 (23-300) U/L SARS-CoV-2 (PCR) Negative (Negative) Influenza A (RT-PCR) Flu a positive H (NEGATIVE) Influenza B (RT-PCR) Flu b negative (NEGATIVE) RSV (PCR) Negative (Negative) Urine Dip Bedside Urine Glucose Negative Bedside Urine Bilirubin - Negative Bedside Urine Ketone +/- 5 Urine Specific [place] 1.020 Bedside Urine Occult Blood - Negative Bedside Urine pH 5.5 Bedside Urine Protein - Negative Bedside Urine Urobilinogen - Negative Bedside Urine Nitrite - Negative Bedside Urine Leukocytes - Negative Esterase Imaging Data Chest x-ray: Radiologist Impression: [address] [id number] XRay Report Signed Patient: León Andino MR#: [id number] : 1940 Acct:[id number] Age/Sex: 83 / M Date of Service: 08/01/24 Loc: ED Accession Number: [id number] Procedure: XR chest 1V Ordering Provider: Franchesca Cabrera D.O. PROCEDURE: XR CHEST 1V INDICATIONS: chest pain TECHNIQUE: One view of the chest was acquired. COMPARISON: None. FINDINGS: Surgical changes and devices: None. Lungs and pleura: Lungs are clear. No pleural effusions or pneumothorax. Pleural calcifications on the left. Mediastinum: Mediastinal contours appear normal. Heart size is normal. Bones and chest wall: No suspicious bony lesions. Overlying soft tissues appear unremarkable. IMPRESSION: No acute cardiopulmonary abnormality is seen. CT scan - head: Radiologist Impression: [address] [address] [address] Scan Report Signed Patient: León Andino MR#: [id number] : 1940 Acct:[id number] Age/Sex: 83 / M Date of Service: 08/01/24 Loc: ED Accession Number: [id number] Procedure: CT head/brain wo con Ordering Provider: Jonathan Lane D.O. PROCEDURE: CT HEAD/BRAIN WO CON INDICATIONS: fall TECHNIQUE: Noncontrast 4.5 mm thick angled axial sections acquired from the foramen magnum to the vertex, with coronal and sagittal reformats. For radiation dose reduction, the following was used: automated exposure control, adjustment of mA and/or kV according to patient size. COMPARISON: [facility], CT, CT CERVICAL SPINE WO CON, 08/01/2024, 19:38. FINDINGS: Image quality: Diagnostic. CSF spaces: Basal cisterns are patent. No extra-axial fluid collections. The ventricles are symmetric in size and shape. Brain: No intracranial bleeds or masses. There is cerebral volume loss for age, with resultant ventricular and sulcal prominence. There are periventricular and deep white matter chronic small vessel ischemic changes. There is intracranial internal carotid artery atherosclerosis. Skull and face: Calvarium and visualized facial bones appear intact, without suspicious lesions. Sinuses: Visualized sinuses demonstrate scattered mucosal most prominent in the air cells as sinuses. IMPRESSION: 1. No acute intracranial process. 2. Moderate atrophy and chronic microvascular ischemic changes. CT - cervical spine: Radiologist Impression: [place] [address] CT Scan Report Signed Patient: León Andino MR#: [id number] : 1940 Acct:[id number] Age/Sex: 83 / M Date of Service: 08/01/24 Loc: ED Accession Number: [id number] Procedure: CT cervical spine wo con Ordering Provider: Jonathan Lane D.O. PROCEDURE: CT CERVICAL SPINE WO CON INDICATIONS: fall TECHNIQUE: Noncontrast 3 mm thick sections acquired from the skull base to the T4 level. Sagittal and coronal reformats were then constructed. For radiation dose reduction, the following was used: automated exposure control, adjustment of mA and/or kV according to patient size. COMPARISON: None. FINDINGS: Image quality: Excellent. Bones: No fractures or dislocations. Visualized superior ribs are intact. Cervical straightening with degenerative changes Soft tissues: Prevertebral soft tissues are normal in thickness. No paravertebral hematomas. No apical pneumothoraces. IMPRESSION: No displaced fracture or traumatic subluxation. ECG Data Interpretation: EKG interpreted ED physician sinuses 70 beats per minute, QTC 419, left axis deviation, nonspecific ST changes, no STEMI MDM Narrative Medical decision making narrative: 83-year-old male history of hypertension hyperlipidemia comes in for increased weakness, increased confusion status post fall earlier today. According to family at bedside he has had a gradual cognitive decline over the past 4 months however today he had more confusion after a mechanical trip and fall. According to patient has been having flu-like symptoms and weakness for the past few days. Lab work performed here unremarkable, with noted to be flu A positive, chest x-ray without any signs of pneumonia, CT scan head and neck without any acute signs of fractures, urinalysis unremarkable for acute urinary tract infection. Patient's symptoms improving according to family at bedside, most likely combination of progressive mild cognitive decline as well as influenza A positive and administration of Valium. At time of evaluation patient is speaking full sentences protecting airway he denies any symptoms at this time they were instructed follow up with Neurology and PCP in outpatient setting they verbalized understanding of this agrees to being discharged home with outpatient follow up Discharge Plan Departure Patient Disposition: Home Clinical Impression: Closed head injury Activity Restrictions/Additional Instructions: Please follow up with Neurology and primary care in outpatient setting Please read the discharge instructions sheet carefully and bring all papers to all doctor follow-up visits, as it may contain information that your doctor may want to see. Disease processes change and evolve, if your symptoms worsen or if you develop any new symptoms that are concerning to you please return for evaluation. Your evaluation today does not show any evidence of any life- threatening/serious illnesses requiring admission to the hospital or surgery. Please follow-up with your doctor for re-evaluation in approximately 1 day. Seek immediate medical attention for any worrisome symptoms. *If you do not have a primary care provider please contact the [facility] Resource line at [phone]. They will ask some questions about your medical history and help get you set up with a doctor in the community. Prescriptions: No Action ASPIRIN (Aspirin) 81 mg PO 3XW Qty: 0 Patient Comments: discontinued baclofen 5 mg tablet 5 mg PO BID PRN (Reason: muscle spasm) Qty: 30 0RF etodolac 200 mg capsule 200 mg PO Q8H PRN (Reason: pain) Qty: 90 1RF lisinopril 20 mg tablet 20 mg PO DAILY Qty: 90 1RF simvastatin 20 mg tablet 20 mg PO HS Qty: 90 1RF sildenafil (pulm.hypertension) 20 mg tablet 40 mg PO ONCE PRN (Reason: sexual activity) Qty: 30 0RF Rx Instructions: administer 30 minutes prior to sexual activity Referrals: Nic Ro MD [Primary Care Provider] - Stand Alone Forms: Patient Portal/API/Survey
[2024-08-01 19:21] LABS: Influenza A - CEPHEID Flu A POSITIVE (NEGATIVE); Influenza B - CEPHEID Flu B NEGATIVE (NEGATIVE); Respiratory Syncytial Virus Negative (Negative)
[2024-08-01 19:28] LABS: COVID-19 CEPHEID 4-PLEX PCR Negative (Negative)
--- NOTE | 2024-08-01 19:35 | DI.CT.S_ITS ---
PROCEDURE: CT CERVICAL SPINE WO CON INDICATIONS: fall TECHNIQUE: Noncontrast 3 mm thick sections acquired from the skull base to the T4 level. Sagittal and coronal reformats were then constructed. For radiation dose reduction, the following was used: automated exposure control, adjustment of mA and/or kV according to patient size. COMPARISON: None. FINDINGS: Image quality: Excellent. Bones: No fractures or dislocations. Visualized superior ribs are intact. Cervical straightening with degenerative changes Soft tissues: Prevertebral soft tissues are normal in thickness. No paravertebral hematomas. No apical pneumothoraces. IMPRESSION: No displaced fracture or traumatic subluxation. Dictated by: Georgina Hyatt M.D. on 08/01/2024 at 20:04 Approved by: Georgina Hyatt M.D. on 08/01/2024 at 20:05
--- NOTE | 2024-08-01 19:35 | DI.CT.S_ITS ---
PROCEDURE: CT HEAD/BRAIN WO CON INDICATIONS: fall TECHNIQUE: Noncontrast 4.5 mm thick angled axial sections acquired from the foramen magnum to the vertex, with coronal and sagittal reformats. For radiation dose reduction, the following was used: automated exposure control, adjustment of mA and/or kV according to patient size. COMPARISON: [facility], CT, CT CERVICAL SPINE WO CON, 08/01/2024, 19:38. FINDINGS: Image quality: Diagnostic. CSF spaces: Basal cisterns are patent. No extra-axial fluid collections. The ventricles are symmetric in size and shape. Brain: No intracranial bleeds or masses. There is cerebral volume loss for age, with resultant ventricular and sulcal prominence. There are periventricular and deep white matter chronic small vessel ischemic changes. There is intracranial internal carotid artery atherosclerosis. Skull and face: Calvarium and visualized facial bones appear intact, without suspicious lesions. Sinuses: Visualized sinuses demonstrate scattered mucosal most prominent in the air cells as sinuses. IMPRESSION: 1. No acute intracranial process. 2. Moderate atrophy and chronic microvascular ischemic changes. Dictated by: Georgina Hyatt M.D. on 08/01/2024 at 20:03 Approved by: Georgina Hyatt M.D. on 08/01/2024 at 20:04
== END 2024-08-01 21:40 | disposition home or self-care (01) ==
PROVIDERS: Emergency Medicine; Emergency Provider Student in an Organized Health Care Education/Training Program; PCP Family Medicine
DX: S09.90XA Unspecified injury of head, initial encounter (principal); R05.9 Cough, unspecified; Z79.82 Long term (current) use of aspirin; R07.9 Chest pain, unspecified; W01.0XXA Fall on same level from slipping, tripping and stumbling without subsequent striking against object, initial encounter; I44.7 Left bundle-branch block, unspecified
CPT/HCPCS: 0241U; 36415; 70450; 71045; 72125; 80053; 81003; 82550; 83690; 83735; 83880; 84484; 85025; 85610; 85730; 93005; 93010; 99283; 99284

== ENCOUNTER → 2024-08-10 09:10 | Outpatient (CLI) | payer OTHER, SELFPAY ==
[2024-08-10 10:46] LABS: Alanine Aminotransferase 25 IU/L (<50); Albumin 4.2 g/dL (3.5-5.0); Albumin Globulin Ratio 1.7 (1.0-2.8); Alkaline Phosphatase 56 U/L (38-126); Aspartate Aminotransferase 27 IU/L (17-59); BUN Creatinine Ratio 18.5 (6-22); Bilirubin Total 0.4 mg/dL (0.2-1.3); Blood Urea Nitrogen 17 mg/dL (9-20); Calcium 9.7 mg/dL (8.4-10.2); Carbon Dioxide 26 mmol/L (22-32); Chloride 101 mmol/L (98-107); Estimated Glomerular Filt Rate > 60 mL/min (>60); Globulin 2.5 g/dL (1.7-4.1); Glucose 106 mg/dL (80-110); HEMOLYSIS < 15 (0-50); Potassium 4.2 mmol/L (3.4-5.1); Sodium 137 mmol/L (137-145); Total Protein 6.7 g/dL (6.3-8.2)
[2024-08-10 11:15] LABS: TSH w/ Reflex to FT4 1.65 uIU/mL (0.47-4.68)
[2024-08-10 11:35] LABS: Vitamin B12 663 pg/mL (239-931)
[2024-08-10 12:23] LABS: Appearance Urine UA CLEAR; Bilirubin Urine UA NEGATIVE (NEGATIVE); Color Urine UA YELLOW; Glucose Urine UA NEGATIVE (Negative); Ketones Urine UA NEGATIVE (NEGATIVE); Leukocyte Esterase Urine UA NEGATIVE (NEGATIVE); Nitrite Urine UA NEGATIVE (Negative); Occult Blood Urine UA NEGATIVE (Negative); Protein Urine UA NEGATIVE (Negative); Urobilinogen Urine UA 0.2 E.U./dL (0.2); pH Urine UA 5.5 (4.5-8.0)
[2024-08-10 13:24] LABS: Bacteria Urine None Seen; Culture Indicated Urine Cult Not Indicated; RBC Urine None Seen (0-5/HPF); Squamous Epithelial Cell Urine None Seen (0-5/HPF); Urine Volume 10mL (spun); WBC Urine None Seen (0-5/HPF)
== END ==
PROVIDERS: PCP Family Medicine; Referring Provider Family Medicine; Visit Provider Family Medicine
DX: E87.1 Hypo-osmolality and hyponatremia (principal); I10 Essential (primary) hypertension; E78.2 Mixed hyperlipidemia; R41.3 Other amnesia; J10.1 Influenza due to other identified influenza virus with other respiratory manifestations; S09.90XA Unspecified injury of head, initial encounter
CPT/HCPCS: 36415; 80053; 81001; 82607; 84443

== ENCOUNTER → 2025-04-15 08:27 | Outpatient (CLI) | payer OTHER, SELFPAY ==
--- NOTE | 2025-04-15 08:29 | DI.RAD.S_ITS ---
PROCEDURE: XR LUMBAR SPINE 2-3V INDICATIONS: acute on chronic low back pain TECHNIQUE: 3 views of the lumbar spine were acquired. COMPARISON: None. FINDINGS: Bones: 5 [id number] vertebrae are present. Grade 1 anterolisthesis of L5 on S1. Mild multilevel degenerative disc disease. Multilevel facet arthropathy, with moderate changes noted at L3-4, L4-5, and L5-S1. There is likely mild bony neural foraminal narrowing at these levels. No vertebral body compression fractures. No suspicious bony lesions. Soft tissues: Overlying bowel gas pattern is normal. No suspicious soft tissue calcifications. IMPRESSION: 1. Multilevel degenerative changes of the spine as above. Likely mild bony neural foraminal narrowing at L3-L4, L4-L5, and L5-S1, where there is moderate facet arthropathy. 2. No acute osseous abnormality. Dictated by: Ariana Chou M.D. on 04/17/2025 at 23:47 Approved by: Ariana Chou M.D. on 04/17/2025 at 23:51
== END ==
LOC: RAD 08:28
PROVIDERS: PCP Family Medicine; Referring Provider Family Medicine; Visit Provider Family Medicine
DX: S33.5XXA Sprain of ligaments of lumbar spine, initial encounter (principal); M47.816 Spondylosis without myelopathy or radiculopathy, lumbar region; M47.817 Spondylosis without myelopathy or radiculopathy, lumbosacral region; M51.360 Other intervertebral disc degeneration, lumbar region with discogenic back pain only; G89.29 Other chronic pain
CPT/HCPCS: 72100

== ENCOUNTER 2025-06-21 10:01 | Outpatient (RCR) | payer OTHER, SELFPAY ==
--- NOTE | 2025-06-21 16:38 | PT.OPPOC ---
Physical, Occupational & Speech Therapy At [facility] Current Diagnoses Other chronic pain (06/21/25) Low back pain, unspecified (06/21/25) Sprain of ligaments of lumbar spine, initial encounter (06/21/25) Visit Care Team Role Provider Type Nic Ro MD Attending Provider Physician Family Provider Primary Care Provider Referring Provider Specialty: Family Practice Address: [address] [place] [address], [facility] Email: [email or web address] Plan Of Care PT OP: Lower Back/Lower Extremity Start: 06/21/25 08:49 Freq: Status: Active Protocol: Document 06/21/25 08:50 LRN (Rec: 06/21/25 09:16 LRN Laptop) Out-Patient Physical Therapy Visit Information Visit Information Visit Type Initial Evaluation Visit Start Time 10:10 Visit Stop Time 10:48 Visit Number 1 Progress Note Due 07/21/25 Evaluation Information Evaluation Date 06/21/25 Precautions Precautions Arthritis, Back pain Current Condition History of Current Condition Onset Date 5 yrs. 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 History of Current Intermittent Lower back pain for past 5 yrs. Condition Granddaughter talked him into coming to therapy because sometimes he doesn't have pain. Yesterday his R leg and R LB started bothering him, but if he gets into a certain position the pain goes away. Sometimes when steps on R leg he has pain in the R groin that causes his leg to partially collapse. Pt denies falling. Happens going down stairs or with walking. Prior Treatments and None. Tests X-rays, told he has arthtritis in LB. Treatment Goals Patient/Caregiver Pt goals: Goals Pt will be able to exercise by walking to mailbox (2 blocks) with pain no greater than 1/10. Pt will be able to shop 2 stores with spouse with pain no greater than 1/10. Independent HEP Personal Factors Other Personal Does outdoor work of heavy lifting activities (carries Factors That May 50# blocks) Effect Therapy/ Arthritis. Recovery Hearing problem Patient Questionnaires Oswestry Low Back Index Oswestry Score 14/100 Oswestry Impairment 1 to 19% Impaired (Score 1-19) OP-PT Pain Assessment Location Low back Pain Location R gluteus chirag Details Pain Intensity 2 Scale Used Numeric (0 - 10) Description Tightness Frequency Intermittent OP Gait Assessment Comments Gait Comments Pt ambulates independently, forward bent at hips and longer step lengths with RLE. No assistive devices needed. Posture Evaluation Position Standing Head/C-Spine Posture Forward Head T-Spine Posture Increased Kyphosis L-Spine Posture Flattened Shoulder Posture (R) Elevated Pelvis Posture Posterior Tilted Weight Distribution Weight Shifted Left Hip Posture (L) Flexed,(R) Flexed,(R) Externally Rotated Ankle/Foot Posture (R) Forefoot Abducted Palpation Assessment Location Abdomen Palpation Location Center of abdomen Palpation Details Abdominal hernia present R posterior hip Palpation Location Glut Chirag & Medius lateral to sacral border Palpation Findings Tenderness Low back Palpation Location Paraspinals Palpation Findings Muscle Guarding Lumbar Spine Range of Motion Lumbar Spine Active Degrees Testing Position Standing Flexion 40 Extension 10 Rotation Left 10 Rotation Right 15 Lateral Flexion Left 20 Lateral Flexion 10 Right Hip Goniometric Range of Motion Hip Measured in Degrees Right Passive Testing Position Supine Straight Leg Raise 45 Abduction 30 Internal Rotation 15 External Rotation 50 Left Passive Testing Position Supine Straight Leg Raise 50 Abduction 40 Internal Rotation 45 External Rotation 45 Special Tests Lumbar Spine Special Tests Straight Leg Raise Test Results + R, ? L Comments 45 deg' R, 50 deg's L Slump Test Results + klaudia Comments Tightness felt Vertical Spine Loading Test Results - Comments No pain Hip Strength Hip Manual Muscle Testing Right External Rotation 5 Normal Internal Rotation 5 Normal Left External Rotation 5 Normal Internal Rotation 5 Normal Therapeutic Exercises Supine Exercises Hip flexor stretch Supine Exercise Name Darrell Test position (R hip stretching focus) Reps/Minutes 2' Sitting Exercises Trunk ext Sitting Exercise Sitting Trunk ext Name Reps/Minutes 2' Comments Frequent cuing to LB Hamstring/LE neural stretch Sitting Exercise Focus R Hamstring/LE neural glides Name Reps/Minutes 2' Standing Exercises Postural lordosis standing Standing Exercise Adjusting for improved posture mechanics Name Comments Cuing for slight trunk ext with standing Self-Care/Home Management Treatment Education Other Education Discussed results of evaluation, goals, treatment, and plan of care (POC) with pt; pt agreeable to evaluation, goals, treatment and POC. Activities Self-Care/Home 3' HEP: Sitting active lumbar ext (slouch correction), Management AROM hip/knee sit<>stand w/neutral posture, & Sitting Activities knee ext for LE neural glide. Physical Therapy Assessment Rehab Potential Rehabilitation Good Potential Evaluation Complexity Number of Personal 3 or More Factors/ Comorbidities Number of Body 4 or More Systems Impaired Clinical Evolving Presentation at Evaluation Impairments Impairments Activity Tolerance,Pain,Posture,ROM,Soft Tissue Mobility,Transfers Goals Two Impairment R LB/LE pain Short Term Goal (STG Pt will be able to exercise by walking to mailbox (2 ) blocks) with pain no greater than 1/10. STG Duration 08/04/25 Wheat Washer Goal (LTG) Pt will be able to shop 2 stores with spouse with pain no greater than 1/10. LTG Duration 09/19/25 One Impairment Lacks self care HEP Short Term Goal (STG Pt educated in self care for pain management & posture ) & body mechanics education. STG Duration 08/04/25 Custodial Goal (LTG) Pt will be independent with a self care HEP of lumbar ext & core stab ex's & hip ROM ex's; LE neural ex's. LTG Duration 09/19/25 Assessment Summary Assessment Pt is an 84 yo male who presents today with R Sciatic pain but provocative test indicate possible lumbar neural and soft tissue involvement. The pt has a visible abdominal hernia that limits his ability to stabilize his core. He has extremely limited hip mobility, IR>ER is most limited. He demonstrates bent over posturing indicating mechanical dysfunction of the spine as he visible has decreased lumbar extension posturing. 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 The pt will benefit from skilled physical therapy to reduce his R lumbar/hip/LE pain, improve his hip and lumbar mobility, improve his core stability and posture . Physical Therapy Plan Frequency and Duration Frequency of 2x/Week Treatment Duration of 12 treatment (weeks) Plan of Care Start 06/21/25 Date Plan of Care End 09/19/25 Date Therapeutic Interventions Therapeutic Gait Training,Home Exercise Program,Joint Mobilizations Interventions ,Manual Therapy,Neuromuscular Re-education,Self-Care/ Home Management,Soft Tissue Mobilization,Taping, Therapeutic Activities,Therapeutic Exercises Modalities Electric Stimulation,Hot Packs,Ultrasound Next Visit Focus/Plan Next Note Type Treatment Note Next Visit Plan Assess trunk strength & hip/LE strength. Review HEP, Manual lumbar traction & STM of R gluts), ex stretch for sciatic/lumbar pain, modalities as needed for ms relaxation of R hip, self care (MH). POC: Pt education (posture & body mechanics), Manual therapy (lumbar traction, STM R gluts) Therapeutic Exercises (lumbar ext & core stab ex's & hip ROM ex's), Therapeutic Activities (transfer training, ?sleeping posture), Neuromuscular Reeducation (core stab). Plan of Care Dates Plan of Care Start Date 06/21/25 Plan of Care End Date 09/19/25 Electronically Signed by: Jil Mcintyre, PT 06/21/25 [id number] If you are in agreement with this Plan of Care, please return a signed and dated copy. I have reviewed this Plan of Care and certify that the skilled therapy services above are required to meet the patient?s needs. Physician Signature Date Printed Name and Credentials Clinical Instructor Signature Printed Name and Credentials
--- NOTE | 2025-06-28 18:27 | PT.OPDS ---
Current Diagnoses Other chronic pain (06/21/25) Low back pain, unspecified (06/21/25) Sprain of ligaments of lumbar spine, initial encounter (06/21/25) Visit Care Team Role Provider Type Nic Ro MD Attending Provider Physician Family Provider Primary Care Provider Referring Provider Specialty: Family Practice Address: [address] [place] [address], [facility] Email: [email or web address] Visit Number Visit Number 1 Discharge Summary PT OP: Lower Back/Lower Extremity Start: 06/21/25 08:49 Freq: Status: Active Protocol: Document 06/28/25 18:24 LRN (Rec: 06/28/25 18:26 LRN Laptop) Physical Therapy Assessment Goals Two Impairment R LB/LE pain Short Term Goal (STG Pt will be able to exercise by walking to mailbox (2 ) blocks) with pain no greater than 1/10. STG Duration 08/04/25 Dentofacial Orthopedics Dentist Goal (LTG) Pt will be able to shop 2 stores with spouse with pain no greater than 1/10. LTG Duration 09/19/25 One Impairment Lacks self care HEP Short Term Goal (STG Pt educated in self care for pain management & posture ) & body mechanics education. STG Duration 08/04/25 Penitentiary Goal (LTG) Pt will be independent with a self care HEP of lumbar ext & core stab ex's & hip ROM ex's; LE neural ex's. LTG Duration 09/19/25 Assessment Summary Assessment Pt was only seen for initial evaluation. No progress. Pt cancelled therapy due to copay too high. Physical Therapy Plan Discharge Physical Therapy Discharge Comments Copay too high
== END 2025-06-29 10:52 | disposition home or self-care (01) ==
LOC: PHYS 10:01
PROVIDERS: Family Provider Family Medicine; PCP Family Medicine; Referring Provider Family Medicine; Visit Provider Family Medicine
DX: M54.50 Low back pain, unspecified (principal); G89.29 Other chronic pain; S33.5XXD Sprain of ligaments of lumbar spine, subsequent encounter
CPT/HCPCS: 97162; 97535